=== PATIENT | male | born 1955 | race Caucasian/White ===

== ENCOUNTER → 2019-11-01 | Outpatient (CLI) | payer BC ==
[2019-11-01 13:46] LABS: Microalb/Creat Ratio UR, Rand 9.065 mg/g (0.000-30.000); Microalbumin, Random Urine 9.79 mg/L (0.000-20.000)
== END | disposition home or self-care (01) ==
LOC: EDBD 07:52 → LAB SHORT 07:52 → LAB EV 07:52
PROVIDERS: Family Medicine
DX: E11.8 Type 2 diabetes mellitus with unspecified complications (principal)
CPT/HCPCS: 82043; 82570